=== PATIENT | male | born 1975 | race Native Hawaiian/Other Pacific Islander ===

== ENCOUNTER 2022-11-08 20:45 | Emergency (ER) | payer BC ==
[~2022-11-08] VITALS: Ht 180.3 cm; Wt 80.7 kg
[2022-11-08 21:31] LABS: PLATELET COUNT 410 K/uL (142-355)
[2022-11-08 22:00] LABS: POTASSIUM 2.9 mmol/L (3.6-5.2)
[2022-11-08 23:09] VITALS: BP 149/128; TEMP 98.6
== END 2022-11-08 23:09 | disposition short-term general hospital (02) ==
LOC: ED 20:45
PROVIDERS: Emergency Medicine
PROC: 2W2 Placement, Anatomical Regions, Dressing (ICD-10-PCS; principal; 2022-11-08)
PROC: 2W2BX4Z Dressing of Left Upper Arm using Bandage (ICD-10-PCS; 2022-11-08)
DX: T22.252A Burn of second degree of left shoulder, initial encounter (principal); T20.05XA Burn of unspecified degree of scalp [any part], initial encounter; T31.0 Burns involving less than 10% of body surface; Z11.52 Encounter for screening for COVID-19; X08.8XXA Exposure to other specified smoke, fire and flames, initial encounter; Y92.89 Other specified places as the place of occurrence of the external cause
CPT/HCPCS: 36415; 80053; 80307; 85027; 87635; 96374; 96375; 99285; J2060; J2270; J2405; U0003